=== PATIENT | female | born 1990 | race African-American/Black ===

== ENCOUNTER 2019-07-08 07:14 | Inpatient (IN) ==
[2019-07-08] MEDS: LACTATED RINGERS 1,000 ML IV SCH ×3 (07:36→23:01)
[2019-07-08] MEDS ORDERED: BUTORPHANOL 2 MG/ML VIAL IV PRN (08:02)
[2019-07-08] MEDS ORDERED: ONDANSETRON 4 MG/2 ML VIAL IV PRN (08:02)
[2019-07-08] MEDS ORDERED: MEPERIDINE 50 MG/1 ML VIAL IV PRN (08:02)
[2019-07-08] MEDS ORDERED: hydrOXYzine HCL 25 MG/1 ML VIAL IM PRN (08:16)
[2019-07-08] MEDS ORDERED: diphenhydrAMINE 50 MG/1 ML VIAL IV PRN (08:16)
[2019-07-08] MEDS ORDERED: ePHEDrine 50 MG/ML AMP IV PRN (08:16)
[2019-07-08] MEDS ORDERED: PROMETHAZINE 25 MG/1 ML VIAL IM ONE (08:16)
[2019-07-08] MEDS ORDERED: NALOXONE 0.4 MG/ML VIAL IV PRN (08:16)
[2019-07-08 08:19] LABS: Basophils % 0.3 % (0.0-0.8); Eosinophils # 0.2 10*3/uL (0.0-0.87); Immature Granulocytes % 0.4 %; Immature Granulocytes Absolute 0.04 #; Lymphocytes # 1.5 10*3/uL (1.4-4.0); Lymphocytes % 14.9 % (21.3-54.2); Mean Corpuscular HGB Conc 32.3 GM/DL (32-36); Mean Platelet Volume 10.4 FL (9.6-12.0); Monocytes % 10.5 % (1.7-12.7); Neutrophils % 71.9 % (38.7-73.9); Platelet Count 228 T/CUMM (130-400); Red Blood Count 3.37 MC/CUMM (3.8-5.5); Red Cell Distribution Width 12.5 % (9.3-17.3); White Blood Count 10.1 T/CUMM (4-12)
[2019-07-08] MEDS ORDERED: LACTATED RINGERS 1,000 ML IV ONE (08:19)
[2019-07-08] MEDS ORDERED: FAMOTIDINE 20 MG/2 ML VIAL IV ONE (08:21)
[2019-07-08] MEDS ORDERED: CITRIC ACID/SODIUM CITRATE 30 ML UDCUP PO ONE (08:21)
[2019-07-08] MEDS ORDERED: OXYTOCIN/LR 20 UNIT/1,000 ML BAG IV SCH (08:30)
[2019-07-08] MEDS ORDERED: fentaNYL 2 MCG/ROPIV 0.2% EPID 100 ML EPIDURAL SCH (08:30)
[2019-07-08] MEDS ORDERED: AMPICILLIN INJ 2,000 MG in SODIUM CHLORIDE 0.9% 100 ML IV ONE (08:39)
[2019-07-08 10:34] LABS: Apearance,Urine CLEAR (Clear); Bilirubin,Urine Negative (Negative); Blood, Urine Small mg/dL (Negative); Glucose,Urine (UA) Negative (Negative); Ketones,Urine Negative (Negative); Mucus,Urine Occasional /LPF (Occasional); Nitrite,Urine Negative (Negative); Protein,Urine 30 MG/DL; RBC,Urine 32 /HPF (0-4); Squamous Epithelial Cell,Urine Occasional /HPF (0-10); Urine Color Yellow (Yellow); Urine Specific Gravity 1.021 (1.001-1.035); Urine Urobilinogen < 2.0 EU/DL (0.2-1.0); WBC,Urine <1 /HPF (0-6)
[2019-07-08] MEDS ORDERED: AMPICILLIN INJ 1,000 MG in SODIUM CHLORIDE 0.9% 100 ML IV SCH (12:45)
[2019-07-08] MEDS ORDERED: LIDOCAINE 1% 50 ML VIAL ONE (12:48)
[2019-07-08] MEDS ORDERED: METHYLERGONOVINE 0.2 MG/1 ML AMP ONE (12:49)
[2019-07-08] MEDS ORDERED: miSOPROStol 200 MCG TABLET ONE (12:49)
[2019-07-08] MEDS ORDERED: IBUPROFEN 800 MG TABLET PO PRN (13:50)
[2019-07-08] MEDS ORDERED: ACETAMINOPHEN 325 MG TABLET PO PRN (13:50)
[2019-07-08] MEDS ORDERED: BISACODYL 10 MG SUPP RECTAL PRN (13:50)
[2019-07-08] MEDS ORDERED: MAGNESIUM HYDROXIDE SUSP 30 ML UDCUP PO PRN (13:50)
[2019-07-08] MEDS ORDERED: OXYTOCIN/LR 20 UNIT/1,000 ML BAG IV ONE (16:11)
[2019-07-08] MEDS: DOCUSATE SODIUM 100 MG CAPSULE PO SCH ×2 (19:34→23:00)
[2019-07-09 05:34] LABS: Basophils % 0.1 % (0.0-0.8); Eosinophils # 0.3 10*3/uL (0.0-0.87); Eosinophils % 2.3 % (0.00-10.9); Hematocrit 28.8 VOL% (35.7-47.0); Hemoglobin 9.4 GM/DL (12.0-16.0); Immature Granulocytes % 0.5 %; Immature Granulocytes Absolute 0.07 #; Lymphocytes # 1.9 10*3/uL (1.4-4.0); Lymphocytes % 13.6 % (21.3-54.2); Mean Corpuscular HGB Conc 32.6 GM/DL (32-36); Mean Corpuscular Volume 91.4 FL (87-102); Mean Platelet Volume 10.8 FL (9.6-12.0); Monocytes % 8.1 % (1.7-12.7); Neutrophils % 75.4 % (38.7-73.9); Platelet Count 202 T/CUMM (130-400); Red Blood Count 3.15 MC/CUMM (3.8-5.5); Red Cell Distribution Width 12.3 % (9.3-17.3); White Blood Count 14.2 T/CUMM (4-12)
[2019-07-09] MEDS: DOCUSATE SODIUM 100 MG CAPSULE PO SCH ×2 (08:55→20:41)
[2019-07-09] MEDS: FERROUS SULFATE 325 MG TABLET PO SCH ×2 (08:57→20:41)
[2019-07-10 07:37] VITALS: BP 118/69
[2019-07-10] MEDS: FERROUS SULFATE 325 MG TABLET PO SCH (09:42)
[2019-07-10] MEDS: DOCUSATE SODIUM 100 MG CAPSULE PO SCH (09:42)
[2019-07-10] MEDS ORDERED: DIPH/TET/ACEL PERT BOOSTER VACCINE 0.5 ML VIAL IM ONE (10:51)
== END 2019-07-10 14:10 | disposition home or self-care (01) | DRG 560 ==
LOC: N.LDOUT 07:14 → N.LD 07:16 → N.OB 16:50
PROVIDERS: ADMIT Obstetrics & Gynecology; ATTEND Obstetrics & Gynecology